=== PATIENT | female | born 1970 | race African-American/Black ===

== ENCOUNTER 2018-04-21 09:46 | Outpatient (CLI) | payer OTHER ==
--- NOTE | 2018-04-21 12:10 | MRI ---
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 FINDINGS: There are some moderate arthritic changes in the knee. These are particularly pronounced through the patellofemoral joint space. There is some marked articular cartilage loss, particularly of the late ral facet. The anterior as well as posterior cruciate ligaments are intact. Just directly along the inferior margin of the posterior cruciate ligament attachment in the more anterior intercondylar not ch region are some marrow edema changes and an area of discontinuity to the subchondral bony plate. Adjacent to this area is a small slightly triangular-shaped 5 mm density which probably represents a small avulsive injury. This is along the inferiormost attachment of the posterior cruciate ligament. There are marked arthritic changes of the trochlea articular cartilage also seen in this area. The medial and lateral menisci are fairly normal in shape and appearance. Medial and lateral collateral ligaments and iliotibial band regions appear unremarkable. The patellar tendon and quadriceps tendons are normal. IMPRESSION: 1. Moderate arthritic changes of the knee, particularly the patellofemoral joint space. There is se aden articular cartilage loss, most of the trochlea as well as patella. 2. An area of marrow edema change which was seen along the inferior femoral attachment of the armature [employer] ior cruciate ligament and more along the anterior aspect intercondylar notch. There is an area of di scontinuity of the subchondral bony plate which I believe is related to a small avulsive area in this area and what may represent a small triangular-shaped 5 mm bone fragment that is in this area. 3. Joint effusion with some small articular bodies probably on the basis of the degenerative change. 4. No evidence of meniscal injury. POS: [facility]
== END 2018-04-21 09:47 | disposition home or self-care (01) ==
LOC: SCSMRI 09:46
PROVIDERS: ATTEND Family Medicine
DX: M23.92 Unspecified internal derangement of left knee (principal); M17.12 Unilateral primary osteoarthritis, left knee